=== PATIENT | female | born 1970 | race Caucasian/White ===

== ENCOUNTER 2021-03-20 14:19 | Emergency (ER) | payer SELFPAY ==
[2021-03-20] MEDS ORDERED: Acetaminophen 500 MG TAB ONE (15:05)
[2021-03-22 00:06] LABS: SARS-CoV-2 PCR by NAA Not Detected (NotDetected)
== END 2021-03-20 15:11 | disposition home or self-care (01) ==
LOC: CSHERS 14:19
DX: J06.9 Acute upper respiratory infection, unspecified (principal); Z20.822 Contact with and (suspected) exposure to COVID-19; G40.909 Epilepsy, unspecified, not intractable, without status epilepticus
CPT/HCPCS: 99283; U0003; U0005